=== PATIENT | female | born 2000 | race American Indian/Alaskan Native ===

== ENCOUNTER 2021-11-13 04:04 | Emergency (ER) | payer SELFPAY ==
[2021-11-13 04:10] VITALS: BP 110/64
[2021-11-13 04:41] LABS: Bilirubin,Urine NEG (Negative); Blood,Urine LG (Negative); Color,Urine Yellow (Yellow); RBC,Urine > 182.0 /HPF (0.0-6.0); Urobilinogen,Urine < 2.0 mg/dL (<2.0)
[2021-11-13 04:49] LABS: HCG Qualitative,Urine Negative (Negative)
[2021-11-13 05:16] LABS: Basophils % (Auto) 0.4 % (0.0-1.8); Eosinophils # (Auto) 0.1 K/mm3 (0.0-0.4); Eosinophils % (Auto) 0.9 % (0.0-4.3); Hematocrit 31.7 % (30.3-42.9); Hemoglobin 10.3 gm/dl (10.1-14.3); Lymphocytes # (Auto) 1.5 K/mm3 (1.2-5.4); Lymphocytes % (Auto) 16.4 % (13.4-35.0); Mean Corpuscular HGB Conc 33 % (30-34); Mean Corpuscular Volume 79 fl (79-97); Monocytes # (Auto) 0.7 K/mm3 (0.0-0.8); Monocytes % (Auto) 7.4 % (0.0-7.3); Platelet Count 275 K/mm3 (140-440); Red Blood Count 4.03 M/mm3 (3.65-5.03); Red Cell Distribution Width 15.4 % (13.2-15.2)
[2021-11-13] MEDS: dexAMETHasone 20 MG/5 ML VIAL IV ONE (05:28)
[2021-11-13] MEDS: KETOROLAC 30 MG/1 ML INJ IV ONE (05:28)
[2021-11-13] MEDS: SODIUM CHLORIDE 0.9% 1000 ML 1,000 ML IV ONE (05:28)
[2021-11-13] MEDS: ONDANSETRON 4 MG/2 ML INJ IV ONE (05:28)
[2021-11-13] MEDS: cefTRIAXone/NS 1 GM/50 ML 1 GM/50 ML BAG IV ONE (05:28)
[2021-11-13] MEDS: FAMOTIDINE 20 MG/2 ML INJ IV ONE (05:28)
[2021-11-13 05:36] LABS: Alanine Aminotransferase 9 units/L (7-56); Albumin 4.1 g/dL (3.9-5); BUN/Creatinine Ratio 15; Blood Urea Nitrogen 12 mg/dL (7-17); Calcium 9.3 mg/dL (8.4-10.2); Hemolysis Index 2
--- NOTE | 2021-11-13 05:45 | Emergency Department Report ---
ED Back Pain/Injury HPI - General Chief Complaint: Back Pain/Injury Stated Complaint: BACK PAIN Source: patient Limitations: No Limitations - History of Present Illness Initial Comments: Patient is A0 a 21-year-old female with no past medical history presents to the ED with complaint of acute onset persistent low back pain after rollerskating 2 days ago. Patient states that the pain is patient got worse in the last 24 hours such that any movement made the pain worse. Patient states th at prior to arrival in the ED, she was unable to walk because of worsening low back pain that radiates to the mid posterior thoracic area. Patient states that during roller skating she fell multiple times and twisted her back but initially there was no pain. Patient states that prior to arrival in the ED 1 hour ago, she also developed nausea and vomiting which she suspects may have been from sujatha d poisoning. Patient denies fever, chills, cough, dizziness, syncope, head or neck injuries, dysuria, urinary frequency and urgency, chest pain, shortness of breath, numbness and tingling or weakness of upper and lower extremities bilaterally. MD Complaint: back pain (Low back pain), other (Nausea and vomiting) -: Sudden, days(s) (2) Similar Symptoms Previously: No Place: home Radiation: none Severity: severe Severity scale (0 -10): 8 Quality: sharp, aching Consistency: constant Improves With: none Worsens With: movement, walking Context: turning/twisting, other (Rollerskating) Associated Symptoms: denies other symptoms, nausea/vomiting. denies: confusion, weakness, chest pain, numbness, difficulty walking, cough, difficulty urinating, diaphoresis, incontinence, fever/chills, constipation, headaches, abdominal pain, loss of appetite, malaise, rash, seizure, shortness of breath, syncope, other - Related Data Previous Rx's Medication Instructions Recorded Last Taken Type Ibuprofen [Motrin] 800 mg PO Q8HR PRN #30 tablet 11/13/21 Unknown Rx Ondansetron [Zofran Odt] 4 mg PO Q6HR PRN #20 tab.rapdis 11/13/21 Unknown Rx cephALEXin [Keflex] 500 mg PO Q8HR #30 cap 11/13/21 Unknown Rx methOCARBAMOL [Robaxin TAB] 750 mg PO Q8H PRN #24 tab 11/13/21 Unknown Rx predniSONE [Deltasone] 40 mg PO QDAY #10 tab 11/13/21 Unknown Rx Allergies Allergy/AdvReac Type Severity Reaction Status Date / Time No Known Allergies Allergy Unverified 11/13/21 04:07 ED Review of Systems ROS: Stated complaint: BACK PAIN Other details as noted in HPI Constitutional: denies: chills, fever Eyes: denies: eye pain, eye discharge, vision change ENT: denies: ear pain, throat pain Respiratory: denies: cough, shortness of breath, wheezing Cardiovascular: denies: chest pain, palpitations Endocrine: no symptoms reported Gastrointestinal: nausea, vomiting. denies: abdominal pain, diarrhea Genitourinary: denies: urgency, dysuria, discharge Musculoskeletal: back pain (Low back pain), arthralgia. denies: joint swelling Skin: denies: rash, lesions Neurological: denies: headache, weakness, paresthesias Psychiatric: denies: anxiety, depression Hematological/Lymphatic: denies: easy bleeding, easy bruising ED Past Medical Hx - Medications Home Medications: Home Medications Medication Instructions Recorded Confirmed Last Taken Type Ibuprofen [Motrin] 800 mg PO Q8HR PRN #30 tablet 11/13/21 Unknown Rx Ondansetron [Zofran Odt] 4 mg PO Q6HR PRN #20 tab.rapdis 11/13/21 Unknown Rx cephALEXin [Keflex] 500 mg PO Q8HR #30 cap 11/13/21 Unknown Rx methOCARBAMOL [Robaxin TAB] 750 mg PO Q8H PRN #24 tab 11/13/21 Unknown Rx predniSONE [Deltasone] 40 mg PO QDAY #10 tab 11/13/21 Unknown Rx ED Physical Exam - General Limitations: No Limitations General appearance: alert, in no apparent distress - Head Head exam: Present: atraumatic, normocephalic, normal inspection - Eye Eye exam: Present: normal appearance, PERRL, EOMI Pupils: Present: normal accommodation - ENT ENT exam: Present: normal exam, normal orophraynx, mucous membranes moist, TM's normal bilaterally, normal external ear exam - Neck Neck exam: Present: normal inspection, full ROM. Absent: tenderness - Respiratory Respiratory exam: Present: normal lung sounds bilaterally. Absent: respiratory distress, wheezes, rales, rhonchi, chest wall tenderness, accessory muscle use, decreased breath sounds - Cardiovascular Cardiovascular Exam: Present: regular rate, normal rhythm, normal heart sounds. Absent: systolic murmur, diastolic murmur, rubs, gallop - GI/Abdominal GI/Abdominal exam: Present: soft, normal bowel sounds. Absent: tenderness, guarding, rebound, hyperactive bowel sounds, hypoactive bowel sounds, organomegaly - Extremities Exam Extremities exam: Present: normal inspection, full ROM, tenderness, normal capillary refill - Back Exam Back exam: Present: normal inspection, full ROM, tenderness (Palpable lumbosacral paraspinal musculoskeletal tenderness), muscle spasm, paraspinal tenderness. Absent: CVA tenderness (R), CVA tenderness (L), vertebral tenderness - Neurological Exam Neurological exam: Present: alert, oriented X3, CN II-XII intact, normal gait, reflexes normal - Psychiatric Psychiatric exam: Present: normal affect, normal mood, anxious - Skin Skin exam: Present: warm, dry, intact, normal color. Absent: rash ED Course Vital Signs 11/13/21 04:09 Temperature 98.6 F Pulse Rate 99 H Respiratory 16 Rate Blood Pressure 110/64 O2 Sat by Pulse 96 Oximetry ED Medical Decision Making - Lab Data Result diagrams: 11/13/21 04:47 11/13/21 04:47 - Medical Decision Making This is A0 a 21-year-old female with no past medical history presents to the ED with complaint of acute onset persistent low back pain after rollerskating 2 days ago. Patient states that the pain is patient got worse in the last 24 hours such that any movement made the pain worse. Patient states that prior to arrival in the ED, she was unable to walk because of worsening low back pain that radiates to the mid posterior thoracic area. Patient states that during roller skating she fell multiple times and twisted her back but initially there was no pain. Patient states that prior to arrival in the ED 1 hour ago, she also developed nausea and vomiting which she suspects may have been from food poisoning. In the ED, patient is alert and oriented x3 and is not in any distress. Patient however appears to be in significant pain, anxious, and having nausea and vomiting during the physical exam. Patient was treated for pain in the ED and was given antiemetics. Lab test results were reviewed and showed significant urinary tract infection in urinalysis. Patient also received Rocephin 1 g IV x1. On reevaluation, patient's pain is well controlled medication, patient is ambulatory in the ED with no difficulty. Patient was discharged home on pain medications muscle relaxants and antibiotics for UTI and was advised to follow-up with her primary care physician in 7 to 10 days for reevaluation or return to the ED immediately if symptoms get worse. - Differential Diagnosis UTI; pyelonephritis; muscle spasm; muscle strain; Critical care attestation.: If time is entered above; I have spent that time in minutes in the direct care of this critically ill patient, excluding procedure time. ED Disposition Clinical Impression: Spasm of muscle of lower back, Strain of muscle, fascia and tendon of lower back, initial encounter, Acute urinary tract infection, Nausea and vomiting in adult patient Disposition: 01 HOME / SELF CARE / HOMELESS Is pt being admited?: No Does the pt Need Aspirin: No Condition: Stable Instructions: Muscle Cramps and Spasms, [id number], Muscle Strain, [id number], Lumbosacral Strain, Back Injury Prevention, [id number], Nausea and Vomiting, Adult, [id number], Urinary Tract Infection, Adult, [id number] Additional Instructions: All lab test results were reviewed and are all nonactionable except for urin alysis that showed significant urinary tract infection. Based on your history and physical exam findings, your symptoms are likely due to muscle spasm or muscle strain of your lower back, complicated by urinary tract infection. Nausea and vomiting is likely due to severe pain and urinary tract infection. Therefore take medication as advised, drink plenty of fluids, follow-up with your primary care physician in 5 to 7 days for reevaluation. Return to the ED immediately if symptoms get worse. Prescriptions: predniSONE [Deltasone] 40 mg PO QDAY #10 tab cephALEXin [Keflex] 500 mg PO Q8HR #30 cap Ibuprofen [Motrin] 800 mg PO Q8HR PRN #30 tablet PRN Reason: Pain , Severe (7-10) methOCARBAMOL [Robaxin TAB] 750 mg PO Q8H PRN #24 tab PRN Reason: Muscle Spasm Ondansetron [Zofran Odt] 4 mg PO Q6HR PRN #20 tab.rapdis PRN Reason: Nausea Referrals: KLAUS STEARNS MD [Primary Care Provider] - 3-5 Days Forms: Work/School Release Form(ED) Time of Disposition: 05:46 Print Language: TAMAZIGHT
== END 2021-11-13 06:37 | disposition home or self-care (01) ==
LOC: ED 04:04
DX: S39.012A Strain of muscle, fascia and tendon of lower back, initial encounter (principal); M62.830 Muscle spasm of back; N39.0 Urinary tract infection, site not specified; R11.2 Nausea with vomiting, unspecified; Z79.899 Other long term (current) drug therapy; X50.1XXA Overexertion from prolonged static or awkward postures, initial encounter; Y93.89 Activity, other specified; Y92.89 Other specified places as the place of occurrence of the external cause; Y99.8 Other external cause status
CPT/HCPCS: 36415; 80053; 81001; 81025; 83690; 85025; 87086; 96365; 96375; 99283; J0696; J1100; J1885; J2405; J3490; J7030; Q0162